=== PATIENT | male | born 1990 | race Caucasian/White ===

== ENCOUNTER 2017-10-03 05:58 | Emergency (ER) | payer SELFPAY ==
[2017-10-03] MEDS ORDERED: ALBUTEROL SULFATE 0.083% NEB 2.5 MG/3 ML AMPUL NEB ONE ×2 (06:27→06:33)
--- NOTE | 2017-10-03 06:33 | ER Document Report ---
ED Respiratory Problem - General Mode of Arrival: Ambulatory Information source: Patient TRAVEL OUTSIDE OF THE [place] IN LAST 30 DAYS: No - HPI Patient complains to provider of: Asthma, Cough, Short of breath Onset: Just prior to arrival Chest pain/discomfort: Tightness - General Chief Complaint: Asthma Exacerbation Stated Complaint: DIFFICULTY BREATHING Time Seen by Provider: 10/03/17 06:18 Notes: Patient is a 26 year old male with a history of asthma presents to the emergency department complaining of chest tightness and shortness of breath. Patient states he woke up this morning excessively coughing and could not breath. Patient states he has not had an asthma attack in many years and does not have an inhaler at home. Patient denies nausea, vomiting, or diarrhea. (PAUL ROLON) - Related Data Allergies/Adverse Reactions: No Known Allergies Allergy (Verified 08/07/17 19:58) Past Medical History - General Information source: Patient - Social History Smoking Status: Current Every Day Smoker Chew tobacco use (# tins/day): Yes - occasional Smoking Education Provided: Yes - > 4 mins Frequency of alcohol use: Social Drug Abuse: None Family History: None Patient has suicidal ideation: No Patient has homicidal ideation: No Pulmonary Medical History: Reports: Hx Asthma - Immunizations Hx Diphtheria, Pertussis, Tetanus Vaccination: Yes Review of Systems - Review of Systems Constitutional: No symptoms reported EENT: No symptoms reported Cardiovascular: See HPI, Chest pain - chest tightness Respiratory: See HPI, Cough, Short of breath Gastrointestinal: No symptoms reported Genitourinary: No symptoms reported Male Genitourinary: No symptoms reported Musculoskeletal: No symptoms reported Skin: No symptoms reported Hematologic/Lymphatic: No symptoms reported Neurological/Psychological: No symptoms reported -: Yes All other systems reviewed and negative Physical Exam - Vital signs Vitals: Temp Pulse Resp BP Pulse Ox 97.8 F 72 20 131/69 H 97 10/03/17 06:04 10/03/17 06:04 10/03/17 06:04 10/03/17 06:04 10/03/17 06:04 - Notes Notes: GENERAL: Alert, interacts well. No acute distress. HEAD: Normocephalic, atraumatic. EYES: Pupils equal, round, and reactive to light. Extraocular movements intact. ENT: Oral mucosa moist, tongue midline. NECK: Full range of motion. Supple. Trachea midline. LUNGS: Left upper lobe rhonchi, inspiratory squeaks, expiratory wheezing located primarily anteriorly. HEART: Regular rate and rhythm. No murmurs, gallops, or rubs. ABDOMEN: Soft, non-tender. Non-distended. Bowel sounds present in all 4 quadrants. EXTREMITIES: Moves all 4 extremities spontaneously. No edema, radial pulses 2/4 bilaterally. No cyanosis. NEUROLOGICAL: Alert and oriented x3. Normal speech. PSYCH: Normal affect, normal mood. SKIN: Warm, dry, normal turgor. No rashes or lesions noted. (PAUL ROLON) Course - Re-evaluation Re-evalutation: 10/03/17 07:49 Wheezing resolved after single breathing treatment. Patient will be given an inhaler from here as well as a prescription for 1. Patient thinks his asthma flare because they have been cleaning at home and starting up dust and dirt. Chest x-ray was negative, all wheezing and rhonchi and squeaks have cleared. No indication for steroids since it cleared after one breathing treatment. Patient will be discharged home. (LAKESHIA CARO) - Vital Signs Vital signs: Temp Pulse Resp BP Pulse Ox 97.8 F 72 20 131/69 H 97 10/03/17 06:04 10/03/17 06:04 10/03/17 06:04 10/03/17 06:04 10/03/17 06:04 Discharge - Discharge Clinical Impression: Pre-hypertension, Tobacco abuse, Tobacco abuse counseling Asthma exacerbation Qualifiers: Asthma severity: mild Asthma persistence: intermittent Qualified Code(s): J45.21 - Mild intermittent asthma with (acute) exacerbation Condition: Stable Disposition: HOME, SELF-CARE Additional Instructions: Please return for fevers, worsening cough or the inhaler no longer working. Use the inhaler 2 puffs every 4 hours as needed. Prescriptions: Albuterol Sulfate [Proair HFA Inhalation Aerosol 8.5 gm MDI] 2 puff IH Q4H PRN # 1 mdi PRN Reason: Forms: Smoking Cessation Education, Elevated Blood Pressure Referrals: FILOMENA GAINES MD [ACTIVE STAFF] - Follow up in 1 week Scribe Attestation: 10/03/17 07:52 I personally performed the services described in the documentation, reviewed and edited the documentation which was dictated to the scribe in my presence, and it accurately records my words and actions. (LAKESHIA CARO) Scribe Documentation - Scribe Written by Esthela:: Esthela Leo, 10/03/2017 06:41 acting as scribe for :: Miki
--- NOTE | 2017-10-03 06:59 | RADIOLOGY REPORT (SQ) ---
EXAM DESCRIPTION: CHEST PA/LAT CLINICAL HISTORY: ANSELMO rhonci, wheezing COMPARISON: None. FINDINGS: Frontal and lateral views of the chest. The cardiomediastinal silhouette has normal size and contour. No consolidation, pneumothorax, or pleural effusion. No displaced rib fractures identified. Upper abdominal soft tissues are unremarkable. IMPRESSION: 1. No acute pulmonary process identified.
[2017-10-03] MEDS ORDERED: ALBUTEROL SULFATE HFA (90 MCG/PUFF) 8 GM MDI (1 MDI/ER DISP) IH ONE (07:48)
[2017-10-03 08:10] VITALS: BP 131/70
== END 2017-10-03 08:10 | disposition home or self-care (01) ==
LOC: ER 05:58
DX: J45.21 Mild intermittent asthma with (acute) exacerbation (principal); R03.0 Elevated blood-pressure reading, without diagnosis of hypertension; R06.02 Shortness of breath; F17.210 Nicotine dependence, cigarettes, uncomplicated
CPT/HCPCS: 94640; 99285; 71020; J3490

== ENCOUNTER 2017-12-09 10:55 | Emergency (ER) | payer BC ==
[2017-12-09] MEDS ORDERED: NORMAL SALINE 1000 ML 1,000 ML IV ONE (11:44)
[2017-12-09] MEDS ORDERED: DIPHENHYDRAMINE HCL 50 MG/ML VIAL IV ONE (11:46)
[2017-12-09] MEDS ORDERED: METOCLOPRAMIDE HCL INJ/PF 10 MG/2 ML SDV IV ONE (11:46)
[2017-12-09] MEDS ORDERED: KETOROLAC TROMETHAMINE INJ/PF 30 MG/1 ML SDV IV ONE (11:46)
--- NOTE | 2017-12-09 11:47 | ER Document Report ---
ED General - General Chief Complaint: Headache Stated Complaint: HEADACHES Time Seen by Provider: 12/09/17 11:14 Mode of Arrival: Ambulatory Information source: Patient, Parent TRAVEL OUTSIDE OF THE [place] IN LAST 30 DAYS: No - HPI Notes: 27-year-old male presents today with complaints of a headache that started this morning, states he woke up and he felt the headache come on. Patient states headache is bilateral, but states this is a worse headache of his life. Reports that he had dizziness associated with this headache, denies any loss of vision but reports blurred vision. Patient reports that he has a history of having headaches however this is never been as bad as it was today but has never been formally diagnosed as migraines. Patient has never been evaluated for his headaches before. Patient tried [id number] ibuprofen and Tylenol without relief. Reports headache pain is 8 out of 10, stabbing and throbbing. He does not have a PCP at this time. Denies fevers, chills, chest pain, palpitations, shortness of breath, dyspnea, nausea, vomiting, diarrhea, abdominal pain, hematuria,blurred vision, double vision, loss of vision, speech changes, LH, dizziness, syncope, headaches, wheezing, ST, URI, neck pain, weakness, bowel or bladder dysfunction, saddle anesthesia, numbness or tingling in bilateral upper or lower extremities equally, muscle paralysis, weakness in bilateral upper or lower extremities equally or rash. Denies IV drug use. - Related Data Allergies/Adverse Reactions: No Known Allergies Allergy (Verified 12/09/17 10:59) Past Medical History - General Information source: Patient, Relative - - Social History Smoking Status: Unknown if Ever Smoked Family History: None Pulmonary Medical History: Reports: Hx Asthma Renal/ Medical History: Denies: Hx Peritoneal Dialysis - Immunizations Hx Diphtheria, Pertussis, Tetanus Vaccination: Yes Review of Systems - Review of Systems Notes: REVIEW OF SYSTEMS: CONSTITUTIONAL : Denies fever, chills, or sweats. Denies recent illness. EENT: Denies eye, ear, throat, or mouth pain or symptoms. Denies nasal or sinus congestion or discharge. Denies throat, tongue, or mouth swelling or difficulty swallowing. CARDIOVASCULAR: Denies chest pain. Denies palpitations or racing or irregular heart beat. Denies ankle edema. RESPIRATORY: Denies cough, cold, or chest congestion. Denies shortness of breath, difficulty breathing, or wheezing. GASTROINTESTINAL: Denies abdominal pain or distention. Denies nausea, vomiting , or diarrhea. Denies blood in vomitus, stools, or per rectum. Denies black, tarry stools. Denies constipation. GENITOURINARY: Denies difficulty urinating, painful urination, burning, frequency, blood in urine, or discharge. FEMALE GENITOURINARY: Denies vaginal bleeding, heavy or abnormal periods, irregular periods. Denies vaginal discharge or odor. MUSCULOSKELETAL: Denies back or neck pain or stiffness. Denies joint pain or swelling. SKIN: Denies rash, lesions or sores. HEMATOLOGIC : Denies easy bruising or bleeding. LYMPHATIC: Denies swollen, enlarged glands. NEUROLOGICAL: +headache. Denies confusion or altered mental status. Denies passing out or loss of consciousness. Denies dizziness or lightheadedness. Denies weakness or paralysis or loss of use of either side. Denies problems with gait or speech. Denies sensory loss, numbness, or tingling. Denies seizures. PSYCHIATRIC: Denies anxiety or stress. Denies depression, suicidal ideation, or homicidal ideation. ALL OTHER SYSTEMS REVIEWED AND NEGATIVE. PHYSICAL EXAMINATION: GENERAL: Well-appearing, well-nourished and in no acute distress. HEAD: Atraumatic, normocephalic. EYES: Pupils equal round and reactive to light, extraocular movements intact, conjunctiva are normal. ENT: Nares patent, oropharynx clear without exudates. Moist mucous membranes. NECK: Normal range of motion, supple without lymphadenopathy LUNGS: Breath sounds clear to auscultation bilaterally and equal. No wheezes rales or rhonchi. HEART: Regular rate and rhythm without murmurs ABDOMEN: Soft, nontender, nondistended abdomen. No guarding, no rebound. No masses appreciated. Female : deferred Musculoskeletal: Normal range of motion, no pitting or edema. No cyanosis. NEUROLOGICAL: Cranial nerves grossly intact. Normal speech, normal gait. Normal sensory, motor exams. PERRLA, EOMI. Full motor and sensory function throughout. 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 Tongue midline. No pronator drift. No ataxia. Neck with APROM. Raises eyebrows. Speaks in full sentences. No weakness on one side. Romberg gait steady able to walk straight line. Able to recall 5 objects. PSYCH: Normal mood, normal affect. SKIN: Warm, Dry, normal turgor, no rashes or lesions noted. Dictation was performed using [employer] voice recognition software Physical Exam - Vital signs Vitals: Temp Pulse Resp BP Pulse Ox 97.3 F 70 16 122/74 96 12/09/17 11:48 12/09/17 11:48 12/09/17 11:48 12/09/17 11:48 12/09/17 11:48 Course - Re-evaluation Re-evalutation: 12/09/17 13:51 Discussed the results of the labs/radiology as well as the diagnosis at great length. CBC negative for any kind of anemia or leukocytosis, CMP shows electrolytes are within normal range as well as liver and renal functions. Ct head negative for any acute findings per radiology. Patient states migraine cocktail resolved his headache. Discussed with patient the need to follow-up with a primary care provider for referral to neurology to help manage his migraines. Advised patient to avoid foods that can trigger migraines, start a migraine journal, etc. Advised patient to stay hydrated. She has made to refill his Ventolin inhaler as he is almost out with his. Denies any issues like this over a year old. Return to the emergency room if symptoms become worse such as but not limited to fevers, chills, chest pain,palpitations, shortness of breath, dyspnea, nausea, vomiting, diarrhea, abdominal pain, hematuria,blurred vision, double vision, loss of vision, speech changes, LH, dizziness, syncope, headaches, wheezing, ST, URI, neck pain, weakness, bowel or bladder dysfunction, saddle anesthesia, numbness or tingling in bilateral upper or lower extremities equally, muscle paralysis, weakness in bilateral upper or lower extremities equally or rash. Patient verbalized understanding these instructions and agree with plan of care. 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 - Vital Signs Vital signs: Temp Pulse Resp BP Pulse Ox 97.3 F 70 16 122/74 96 12/09/17 11:48 12/09/17 11:48 12/09/17 11:48 12/09/17 11:48 12/09/17 11:48 - Laboratory Result Diagrams: 12/09/17 12:45 12/09/17 12:45 Laboratory results interpreted by me: 12/09/17 12/09/17 12:04 12:45 WBC 12.0 H RBC 6.40 H Hgb 17.4 H Hct 51.2 H Absolute Neutrophils 8.6 H Urine Blood SMALL H Discharge - Discharge Clinical Impression: Headache Qualifiers: Headache type: unspecified Headache chronicity pattern: acute headache Intractability: intractable Qualified Code(s): R51 - Headache Instructions: Headache ([facility]), Toradol Injection ([facility]) Forms: Return to Work Referrals: KELSY SNYDER MD [ACTIVE STAFF] - Follow up in 3-5 days STEPH MAYS MD [EMERITUS] - Follow up in 1 week
[2017-12-09 11:49] VITALS: BP 122/74
--- NOTE | 2017-12-09 12:09 | RADIOLOGY REPORT (SQ) ---
EXAM DESCRIPTION: CT HEAD WITHOUT COMPLETED DATE/TIME: 12/09/2017 11:54 am REASON FOR STUDY: worse PARMAR in life with dizziness, never seen for PARMAR COMPARISON: 07/05/2015. TECHNIQUE: Axial images acquired through the brain without intravenous contrast. Images reviewed wi th bone, brain and subdural windows. Images stored on PACS. All CT scanners at this facility use dose modulation, iterative reconstruction, and/or weight based d osing when appropriate to reduce radiation dose to as low as reasonably achievable (ALARA). [facility]: Dose Right [facility]: CareDose [facility]: Dose Right [facility]: Teradose 4D [facility]: JumpSeat RADIATION DOSE: CT Rad equipment meets quality standard of care and radiation dose reduction techniq ues were employed. CTDIvol: 64.6 mGy. DLP: 1163 mGy-cm. mGy. LIMITATIONS: None. FINDINGS: VENTRICLES: Normal size and contour. CEREBRUM: No masses. No hemorrhage. No midline shift. No evidence for acute infarction. Normal gra y/white matter differentiation. No areas of low density in the white matter. CEREBELLUM: No masses. No hemorrhage. No alteration of density. No evidence for acute infarction. EXTRAAXIAL SPACES: No fluid collections. No masses. ORBITS AND GLOBE: No intra- or extraconal masses. Normal contour of globe without masses. CALVARIUM: No fracture. PARANASAL SINUSES: Mucosal nodules in the right maxillary and sphenoid sinuses. No fluid levels. SOFT TISSUES: No mass or hematoma. OTHER: No other significant finding. IMPRESSION: NORMAL BRAIN CT WITHOUT CONTRAST. RIGHT MAXILLARY AND SPHENOID SINUS DISEASE. EVIDENCE OF ACUTE STROKE: NO. COMMENT: Quality ID # [id number]: Final reports with documentation of one or more dose reduction techniques (e.g., Automated exposure control, adjustment of the mA and/or kV according to patient size, use of iterative reconstruction technique) TECHNICAL DOCUMENTATION: JOB ID: [id number] [employer]- All Rights Reserved Reading location - IP/workstation name: [email or web address]
[2017-12-09 12:28] LABS: APPEARANCE,URINE CLEAR; BILIRUBIN,URINE NEGATIVE (NEGATIVE); COLOR,URINE YELLOW; GLUCOSE, URINE NEGATIVE (NEGATIVE); KETONES,URINE NEGATIVE (NEGATIVE); LEUKOCYTE ESTERASE,URINE NEGATIVE (NEGATIVE); NITRITE,URINE NEGATIVE (NEGATIVE); PROTEIN,URINE NEGATIVE (NEGATIVE); URINE SPECIFIC GRAVITY 1.019; UROBILINOGEN,URINE NEGATIVE mg/dL (<2.0)
[2017-12-09 12:45] LABS: URINE AMPHETAMINES SCREEN NEGATIVE; URINE BARBITURATES SCREEN NEGATIVE; URINE BENZODIAZEPINES SCREEN NEGATIVE; URINE COCAINE SCREEN NEGATIVE; URINE MARIJUANA (THC) SCREEN NEGATIVE; URINE METHADONE SCREEN NEGATIVE; URINE PHENCYCLIDINE SCREEN NEGATIVE
[2017-12-09 13:02] LABS: ABSOLUTE BASOPHILS # (AUTO) 0.1 10^3/uL (0.0-0.2); ABSOLUTE EOSINOPHILS # (AUTO) 0.4 10^3/uL (0.0-0.6); ABSOLUTE LYMPHOCYTES (AUTO) 2.2 10^3/uL (0.5-4.7); ABSOLUTE MONOCYTES (AUTO) 0.7 10^3/uL (0.1-1.4); ABSOLUTE NEUT (AUTO) 8.6 10^3/uL (1.7-8.2); BASOPHILS % (AUTO) 0.5 % (0-2); EOSINOPHILS % (AUTO) 3.7 % (0-6); HEMATOCRIT 51.2 % (37.9-51.0); HEMOGLOBIN 17.4 g/dL (13.5-17.0); LYMPHOCYTES % (AUTO) 18.1 % (13-45); MEAN CORPUSCULAR HEMOGLOBIN 27.1 pg (27.0-33.4); MEAN CORPUSCULAR HGB CONC 33.9 g/dL (32.0-36.0); MEAN CORPUSCULAR VOLUME 80 fl (80-97); MONOCYTES % (AUTO) 5.8 % (3-13); PLATELET COUNT 210 10^3/uL (150-450); RED CELL DISTRIBUTION WIDTH 13.1 % (11.5-14.0); SEGMENTED NEUTROPHILS % (AUTO) 71.9 % (42-78); TOTAL CELLS COUNTED % (AUTO) 100 %
[2017-12-09 13:16] LABS: ALANINE AMINOTRANSFERASE 29 U/L (21-72); ALBUMIN 4.8 g/dL (3.5-5.0); ALKALINE PHOSPHATASE 50 U/L (38-126); ANION GAP 10 (5-19); ASPARTATE AMINO TRANSFERASE 22 U/L (17-59); BILIRUBIN,TOTAL 0.9 mg/dL (0.2-1.3); BLOOD UREA NITROGEN 13 mg/dL (7-20); CALCIUM 10.2 mg/dL (8.4-10.2); CARBON DIOXIDE 30 mmol/L (22-30); CHLORIDE 102 mmol/L (98-107); GLUCOSE 85 mg/dL (75-110); POTASSIUM 4.4 mmol/L (3.6-5.0); SODIUM 142.2 mmol/L (137-145); TOTAL PROTEIN 7.1 g/dL (6.3-8.2)
== END 2017-12-09 14:15 | disposition home or self-care (01) ==
LOC: ER 10:55
DX: R51 Headache (principal); R42 Dizziness and giddiness; H53.8 Other visual disturbances; J45.909 Unspecified asthma, uncomplicated
CPT/HCPCS: 99284; 96361; 96374; 96375; 36415; 85025; 80053; 81001; 80307; 70450; J1200; J1885; J2765; J7030

== ENCOUNTER 2017-12-15 17:00 | Emergency (ER) | payer BC ==
--- NOTE | 2017-12-15 17:57 | ER Document Report ---
ED Medical Screen (RME) - General Chief Complaint: Leg Pain Stated Complaint: RT LEG PAIN Time Seen by Provider: 12/15/17 17:52 Mode of Arrival: Ambulatory Information source: Patient Notes: spontaneous onset of right lower ext swelling/pain. PERC neg TRAVEL OUTSIDE OF THE [place] IN LAST 30 DAYS: No - Related Data Allergies/Adverse Reactions: No Known Allergies Allergy (Verified 12/15/17 17:02) Past Medical History - Social History Chew tobacco use (# tins/day): Yes Frequency of alcohol use: Occasional Drug Abuse: None Pulmonary Medical History: Reports: Hx Asthma Renal/ Medical History: Denies: Hx Peritoneal Dialysis - Immunizations Hx Diphtheria, Pertussis, Tetanus Vaccination: Yes Physical Exam - Vital signs Vitals: Temp Pulse Resp BP Pulse Ox 98.2 F 70 16 123/79 97 12/15/17 17:09 12/15/17 17:09 12/15/17 17:09 12/15/17 17:09 12/15/17 17:09 Course - Vital Signs Vital signs: Temp Pulse Resp BP Pulse Ox 98.2 F 70 16 123/79 97 12/15/17 17:09 12/15/17 17:09 12/15/17 17:09 12/15/17 17:09 12/15/17 17:09
[2017-12-15 18:27] LABS: ABSOLUTE BASOPHILS # (AUTO) 0.1 10^3/uL (0.0-0.2); ABSOLUTE EOSINOPHILS # (AUTO) 0.4 10^3/uL (0.0-0.6); ABSOLUTE LYMPHOCYTES (AUTO) 2.9 10^3/uL (0.5-4.7); ABSOLUTE MONOCYTES (AUTO) 0.6 10^3/uL (0.1-1.4); BASOPHILS % (AUTO) 0.6 % (0-2); EOSINOPHILS % (AUTO) 3.7 % (0-6); HEMATOCRIT 47.3 % (37.9-51.0); HEMOGLOBIN 16.1 g/dL (13.5-17.0); LYMPHOCYTES % (AUTO) 28.7 % (13-45); MEAN CORPUSCULAR HEMOGLOBIN 27.6 pg (27.0-33.4); MEAN CORPUSCULAR HGB CONC 34.1 g/dL (32.0-36.0); MEAN CORPUSCULAR VOLUME 81 fl (80-97); MONOCYTES % (AUTO) 6.4 % (3-13); PLATELET COUNT 216 10^3/uL (150-450); RED BLOOD COUNT 5.84 10^6/uL (4.35-5.55); RED CELL DISTRIBUTION WIDTH 13.2 % (11.5-14.0); SEGMENTED NEUTROPHILS % (AUTO) 60.6 % (42-78); TOTAL CELLS COUNTED % (AUTO) 100 %; WHITE BLOOD COUNT 9.9 10^3/uL (4.0-10.5)
[2017-12-15 18:42] LABS: ALANINE AMINOTRANSFERASE 29 U/L (21-72); ALBUMIN 4.3 g/dL (3.5-5.0); ALKALINE PHOSPHATASE 48 U/L (38-126); ANION GAP 7 (5-19); ASPARTATE AMINO TRANSFERASE 19 U/L (17-59); BILIRUBIN,DIRECT 0.3 mg/dL (0.0-0.4); BILIRUBIN,TOTAL 0.4 mg/dL (0.2-1.3); BLOOD UREA NITROGEN 16 mg/dL (7-20); CALCIUM 10.2 mg/dL (8.4-10.2); CARBON DIOXIDE 31 mmol/L (22-30); CHLORIDE 105 mmol/L (98-107); GLUCOSE 88 mg/dL (75-110); POTASSIUM 4.3 mmol/L (3.6-5.0); SODIUM 143.4 mmol/L (137-145); TOTAL PROTEIN 7.1 g/dL (6.3-8.2)
--- NOTE | 2017-12-15 20:33 | ER Document Report ---
ED General - General Chief Complaint: Leg Pain Stated Complaint: RT LEG PAIN Time Seen by Provider: 12/15/17 17:52 Mode of Arrival: Ambulatory TRAVEL OUTSIDE OF THE [place] IN LAST 30 DAYS: No - HPI Patient complains to provider of: Right leg pain Notes: Patient coming in for evaluation of right leg pain. Patient has a small area of erythema on the right anterior calf states painful. Also like swelling. Refer to the ER for evaluation of a DVT. Patient also states some numbness and tingling however at this time states this is currently resolved resting comfortably upon my evaluation no nausea vomiting fevers chills diarrhea chest pain abdominal pain. - Related Data Allergies/Adverse Reactions: No Known Allergies Allergy (Verified 12/15/17 17:02) Past Medical History - General Information source: Patient - Social History Smoking Status: Current Some Day Smoker Chew tobacco use (# tins/day): Yes Frequency of alcohol use: Occasional Drug Abuse: None Family History: None Patient has suicidal ideation: No Patient has homicidal ideation: No Pulmonary Medical History: Reports: Hx Asthma Renal/ Medical History: Denies: Hx Peritoneal Dialysis - Immunizations Hx Diphtheria, Pertussis, Tetanus Vaccination: Yes Review of Systems - Review of Systems Constitutional: No symptoms reported EENT: No symptoms reported Cardiovascular: No symptoms reported Respiratory: No symptoms reported Gastrointestinal: No symptoms reported Genitourinary: No symptoms reported Male Genitourinary: No symptoms reported Musculoskeletal: Other - Leg pain Skin: No symptoms reported Hematologic/Lymphatic: No symptoms reported Neurological/Psychological: No symptoms reported -: Yes All other systems reviewed and negative Physical Exam - Vital signs Vitals: Temp Pulse Resp BP Pulse Ox 98.2 F 70 16 123/79 97 12/15/17 17:09 12/15/17 17:09 12/15/17 17:09 12/15/17 17:09 12/15/17 17:09 Interpretation: Normal - General General appearance: Appears well, Alert - HEENT Head: Normocephalic, Atraumatic Eyes: Normal Pupils: PERRL - Respiratory Respiratory status: No respiratory distress Chest status: Nontender Breath sounds: Normal Chest palpation: Normal - Cardiovascular Rhythm: Regular Heart sounds: Normal auscultation Murmur: No - Abdominal Inspection: Normal Distension: No distension Bowel sounds: Normal Tenderness: Nontender Organomegaly: No organomegaly - Back Back: Normal, Nontender - Extremities General upper extremity: Normal inspection, Nontender, Normal color, Normal ROM , Normal temperature General lower extremity: Nontender, Normal color, Normal ROM, Normal temperature , Normal weight bearing. No: Normal inspection - Patient with a small area of linear erythema on the anterior calf that is tender to palpation. Looks to be consistent with possible superficial thrombophlebitis., Laura's sign - Neurological Neuro grossly intact: Yes Cognition: Normal Orientation: AAOx4 Sid Coma Scale Eye Opening: Spontaneous Sid Coma Scale Verbal: Oriented Sid Coma Scale Motor: Obeys Commands [place] Coma Scale Total: 15 Speech: Normal Motor strength normal: LUE, RUE, LLE, RLE Sensory: Normal - Psychological Associated symptoms: Normal affect, Normal mood - Skin Skin Temperature: Warm Skin Moisture: Dry Skin Color: Normal Course - Re-evaluation Re-evalutation: 12/15/17 23:02 No DVT noted on the ultrasound. We will treat for superficial thrombophlebitis. No signs of cellulitis. Patient discharged home. - Vital Signs Vital signs: Temp Pulse Resp BP Pulse Ox 98.2 F 74 20 131/75 H 98 12/15/17 17:09 12/15/17 21:56 12/15/17 21:56 12/15/17 21:56 12/15/17 21:56 - Laboratory Result Diagrams: 12/15/17 18:05 12/15/17 18:05 Laboratory results interpreted by me: 12/15/17 12/15/17 18:05 18:05 RBC 5.84 H Carbon Dioxide 31 H Discharge - Discharge Clinical Impression: Leg pain Qualifiers: Laterality: unspecified laterality Qualified Code(s): M79.606 - Pain in leg, unspecified Condition: Good Disposition: HOME, SELF-CARE Instructions: Leg Pain Nonspecific ([facility]), Superficial Phlebitis ([facility]) Additional Instructions: Your ultrasound does not show any deep blood clots I do believe the pain and small area of redness on her leg is probably due to superficial thrombophlebitis are inflammation of the vein just underneath the skin. Treatment involves warm compresses and anti-inflammatory medication. Please take as prescribed follow-up with your primary care physician. Prescriptions: Ibuprofen [Motrin 600 mg Tablet] 600 mg PO Q8HP PRN #90 tablet PRN Reason: Forms: Return to Work
[2017-12-15 21:57] VITALS: BP 131/75
--- NOTE | 2017-12-16 08:03 | XCELERA REPORT ---
[address] [address] Lower Extremity Venous Evaluation Name: RENÉ NETTLES Age: 27 yrs Gender: Male : 1990 Patient Status: Emergency Patient Location: ER Study Date: 12/15/2017 07:17 PM Procedure: Color flow and duplex imaging of the veins of the right lower extremity as well as the left Common Femoral vein. Reason For Study: leg pain/swelling Ordering Physician: CAIT PAUL Performed By: Marisol Clark Right Sided Venous Evaluation Normal vessel filling wall to wall, compression and augmentation as well as Colour flow down to the infrageniculate veins. Left Sided Venous Evaluation The left common femoral vein is fully compressible. Spontaneous and phasic flow is present in the left common femoral vein. Interpretation Summary No duplex evidence of DVT or obstruction in the right lower extremity nor in the left Common Femoral vein. : CAIT PAUL > Franck Mejía
== END 2017-12-15 21:56 | disposition home or self-care (01) ==
LOC: ER 17:00
DX: M79.604 Pain in right leg (principal); M79.89 Other specified soft tissue disorders; R20.0 Anesthesia of skin; F17.200 Nicotine dependence, unspecified, uncomplicated
CPT/HCPCS: 36415; 80053; 85025; 93971; 99284

== ENCOUNTER → 2018-07-27 | Outpatient (CLI) | payer OTHER ==
--- NOTE | 2018-07-27 18:58 | RADIOLOGY REPORT (SQ) ---
EXAM DESCRIPTION: SKULL 1-3 VIEWS COMPLETED DATE/TIME: 07/27/2018 6:44 pm REASON FOR STUDY: MRI CLEARANCE Z82.3 FAMILY HISTORY OF STROKE COMPARISON: None. NUMBER OF VIEWS: Two views TECHNIQUE: PA and lateral views were obtained. LIMITATIONS: None. FINDINGS: SKULL: Sutures are normal. No skull fractures. OTHER: No radiopaque foreign body is seen other than limited dental work. IMPRESSION: No radiopaque foreign body is seen in or near the orbits. TECHNICAL DOCUMENTATION: JOB ID: [id number] [employer]- All Rights Reserved Reading location - IP/workstation name: [email or web address]
--- NOTE | 2018-07-28 08:38 | RADIOLOGY REPORT (SQ) ---
EXAM DESCRIPTION: MRI HEAD COMBO COMPLETED DATE/TIME: 07/27/2018 7:34 pm REASON FOR STUDY: Z82.3 FAMILY HISTORY OF STROKE Z82.3 FAMILY HISTORY OF STROKE COMPARISON: CT brain 12/09/2017 TECHNIQUE: Multiplanar imaging includes noncontrasted T1, T2, FLAIR, diffusion with ADC map and post gadolinium contrast T1 sequences. Images stored on PACS. CONTRAST TYPE AND DOSE: 15 mL Dotarem. RENAL FUNCTION: GFR > 60. LIMITATIONS: None. FINDINGS: ANATOMY: No developmental anomalies. Normal vascular flow voids. Pituitary fossa normal. CSF SPACES: Normal in size and contour. No hemorrhage. CEREBRUM: Sulci and gyri normal in size and contour. Normal white matter signal on FLAIR imaging. No evidence of hemorrhage, mass, or extraaxial fluid collection. No abnormal enhancement post contrast. POSTERIOR FOSSA: No signal alteration. No hemorrhage. No edema, masses, or mass effect. Internal demetri tory canals, cerebellopontine angles, mastoids normal. No enhancing lesions. No abnormal enhancement post contrast. DIFFUSION IMAGING: Negative for acute or subacute infarction. ORBITS: No masses. Globes normal. PARANASAL SINUSES: No fluid levels. Benign mucus or serous retention cysts in the right maxillary an d right sphenoid sinuses. OTHER: No other significant finding. IMPRESSION: NORMAL MRI OF THE BRAIN WITHOUT AND WITH INTRAVENOUS GADOLINIUM CONTRAST. EVIDENCE OF ACUTE STROKE: NO. TECHNICAL DOCUMENTATION: JOB ID: [id number] [employer]- All Rights Reserved Reading location - IP/workstation name: [email or web address]
== END ==
LOC: RAD 19:34
PROVIDERS: ATTEND Nurse Practitioner Family
DX: Z82.3 Family history of stroke (principal)
CPT/HCPCS: 70250; 70553

== ENCOUNTER 2018-08-05 12:26 | Emergency (ER) | payer OTHER ==
[2018-08-05 12:30] VITALS: BP 125/77
[2018-08-05] MEDS ORDERED: TETRACAINE HCL 0.5% OPH SOLN 4 ML OU ONE (12:34)
[2018-08-05] MEDS ORDERED: ERYTHROMYCIN 0.5% OPH OINTMENT 3.5 GM TUBE OS ONE (13:15)
--- NOTE | 2018-08-05 13:21 | ER Document Report ---
HPI - HPI Pain Level: 2 Notes: Patient is an otherwise healthy 27-year-old male who presents with chief complaint of possible foreign body to his right eye. 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 Patient reports ice foreign body sensation under his top right eyelid. Patient states he tried flushing out his eye prior to arrival but still feels like there is something stuck in there. Patient denies any use of contact lenses. - EENT EENT: REPORTS: Eye problems - R eye pain Past Medical History - General Information source: Patient - Social History Smoking Status: Current Every Day Smoker Frequency of alcohol use: Occasional Drug Abuse: None Family History: None Patient has suicidal ideation: No Patient has homicidal ideation: No Pulmonary Medical History: Reports: Hx Asthma Renal/ Medical History: Denies: Hx Peritoneal Dialysis - Immunizations Hx Diphtheria, Pertussis, Tetanus Vaccination: Yes Vertical Provider Document - CONSTITUTIONAL Notes: PHYSICAL EXAMINATION: GENERAL: Well-appearing, well-nourished and in no acute distress. HEAD: Atraumatic, normocephalic. EYES: Pupils equal round extraocular movements intact, conjunctiva are normal. Foreign body noted to right upper eyelid. No corneal abrasion noted. ENT: Nares patent NECK: Normal range of motion LUNGS: No respiratory distress Musculoskeletal: Normal range of motion NEUROLOGICAL: Normal speech, normal gait. PSYCH: Normal mood, normal affect. SKIN: Warm, Dry, normal turgor, no rashes or lesions noted. - INFECTION CONTROL TRAVEL OUTSIDE OF THE [place] IN LAST 30 DAYS: No Course - Re-evaluation Re-evalutation: Eye examination was performed after instillation of 1 drop of tetracaine. Initially no foreign body was seen. Dr. Schofield came to the bedside to assist and we were able to locate a small foreign body located deep into the upper right lid. This was removed with a cotton swab. Eye examination was reperformed and there is no uptake of fluorescein stain. Patient will be placed on erythromycin ointment. Patient given strict ED return precautions. - Vital Signs Vital signs: Temp Pulse Resp BP Pulse Ox 98.8 F 81 16 125/77 97 08/05/18 12:29 08/05/18 12:29 08/05/18 12:29 08/05/18 12:29 08/05/18 12:29 Procedures - Eye Procedure Right eye Foreign body removal: Right Fluorescein applied: Right Antibiotic Oinment/Drps Admin: Right eye Discharge - Discharge Clinical Impression: Foreign body, eye Qualifiers: Encounter type: initial encounter Laterality: right Qualified Code(s): T15.91XA - Foreign body on external eye, part unspecified, right eye, initial encounter Condition: Stable Disposition: HOME, SELF-CARE Additional Instructions: Corneal Foreign Body You had a particle on the cornea of your eye. It's been removed, but your eye may be irritated until complete healing occurs. If a metal foreign body was imbedded in the eye, rust may develop in the cornea. If all the rust can't be removed at first, it can be removed at your follow-up visit. Following removal of a corneal foreign body, the usual treatment is to place antibiotics in the eye. If the eye is severely irritated, the pupil may be dilated to ease the pain. In addition, pain medication may be necessary. A follow-up visit is usually scheduled to assure healing. Do not drive or operate machinery until you have the full use of both your eyes. Healing of the area where the particle was embedded takes one to three days. If eye pain becomes severe, or if there is purulent drainage, eye swelling , or decreasing vision, call the doctor or return at once for re-evaluation. The foreign body was removed from your eye. Please use the erythromycin ointment to the right eye 4-6 times per day. Apply a 1 centimeter ribbon to the bottom eye lid, the nurse will show you how to do this. Return to the emergency department for any of the above symptoms. Forms: Return to Work
== END 2018-08-05 13:30 | disposition home or self-care (01) ==
LOC: ER 12:26
DX: T15.91XA Foreign body on external eye, part unspecified, right eye, initial encounter (principal); X58.XXXA Exposure to other specified factors, initial encounter; F17.200 Nicotine dependence, unspecified, uncomplicated; J45.909 Unspecified asthma, uncomplicated
CPT/HCPCS: 99283; J3490 ×2